=== PATIENT | female | born 1955 | race Caucasian/White ===

== ENCOUNTER 2019-03-31 15:23 | Outpatient (RCR) | payer SELFPAY ==
--- NOTE | 2019-04-05 12:35 | HP.PTEVAL ---
Patient's Visit Information KUMAR HOFF is a 63 year old F referred to Physical Therapy by Sotrm Landaverde DO with a diagnosis of Gait Abnormality. Date of Evaluation: 03/31/19 Physical Therapist: Aminah Boucher DPT - Visit Plan Plan: Patient to do I HEP and use heel lift in left shoe. Call if questions or come back as needed- Kitchen Sink Exercises Given - Subjective Findings: Patient attends PT today with her . She reports that she fell and broke her left hip 4 years ago. She had PT at that time- she does not have pain very often but she and her are concerned becuase she does not walk straight. She does not have loss of balance or falls but wants to walk better. She does get stiff after sitting for long periods of time and has to use her arms to rise from a chair. No limitations in ADL's. Does not consistently go to a chiropractor but has been to one before. - Objective Posture: good in sitting and fair in standing. Observation: right hip is elevated compared to left. Palpation: not tender. Gait: Trendelenburg- good bridget. ROM: WFL in all planes. Palpation: not tender. Strength: Ankle: 5/5, Knee: 5/5, Hip: 4+/5 Core: fair. SLS: mild hip drop but can SLS for 15 sec without LOB. Special Test: LLD: left is 1/2 shorter than the right with pelvis neutral, Pelvic Alignment: WNL - Goals Goal 1:: Patient will be I with HEP - Rehabilitation Potential Physical Therapy Diagnosis: Patient presents with a significant leg length discrepancy leading to muscle imbalance and abnormal gait pattern Rehabilitation Potential: Fair - Anticipated Interventions Thank you for the opportunity to evaluate your patient. For Medicare and Medicare HMO plans, please review the plan of care and approve it. It will need to be FAXED BACK to us at [phone] for Medicare purposes. For Medicare only, by signing this I certify the plan of care. Please let me know if there are questions or concerns regarding this plan of care. Physician Signature: Date:
--- NOTE | 2019-06-08 14:23 | HP.PT.NRP ---
HP - Discharge Summary (1) - Patient Information KUMAR HOFF was seen in my office for initial evaluation on 03/31/19. The following Plan of Care was established for this patient: This patient was last seen in our office . Pertinent comments regarding their Physical therapy will appear below: At this point I will be discontinuing this patient from physical therapy. I would be happy to see this patient again in the future if found appropriate by the physician. Thank you! LAUREN OleaT
== END 2019-03-31 19:00 | disposition home or self-care (01) ==
LOC: PT 15:23
PROVIDERS: Family Provider Family Medicine; PCP Family Medicine; Referring Provider Family Medicine; Visit Provider Family Medicine
DX: S72.002D Fracture of unspecified part of neck of left femur, subsequent encounter for closed fracture with routine healing (principal); M25.552 Pain in left hip
CPT/HCPCS: 97161

== ENCOUNTER → 2021-07-04 15:42 | Outpatient (CLI) | payer SELFPAY, OTHER ==
--- NOTE | 2021-07-04 15:56 | RAD_ITS ---
STUDY: X-RAY - LUMBAR SPINE REASON FOR EXAM: Female, 65 years old. DIFFICULTY WALKING TECHNIQUE: 5 radiographic view(s) of the lumbar spine were obtained. COMPARISON: None FINDINGS: Normal lumbar lordosis. There is no substantial scoliosis. Minimal L3-4 anterolisthesis. Grade 1 L4-5 anterolisthesis. There is multilevel endplate spondylosis of the lumbar vertebrae. There is multi-level degenerative disc disease with multi-level disc space narrowing. There is no demonstrated spondylolysis of the pars interarticulares. The soft tissue structures are unremarkable. RAD/L/S Spine Min 4 Views IMPRESSION: Degenerative changes of the spine, as detailed above. Electronically Signed: Shane Coleman MD at 7:41 EDT Tel , Service support ,
--- NOTE | 2021-07-04 15:57 | RAD_ITS ---
STUDY: X-RAY - PELVIS AND BILATERAL HIPS REASON FOR EXAM: Female, 65 years old. Difficulty walking. TECHNIQUE: AP view of the pelvis.? 2 views of the right hip, and 2 views of the left hip were obtained. COMPARISON: 07/26/2015. FINDINGS: There is a non-specific bowel gas pattern. Normal visualized soft tissue structures. Osteopenia. Moderate arthrosis of the sacroiliac joints, right greater than left. Mild arthrosis at the symphysis pubis. Mild arthrosis of the right hip. Three Stevens pins traversing the left femoral neck with slight impaction at the previously described fracture site. RAD/Hips B/L min 2 views w/ Pelvis IMPRESSION: Osteopenia with osteoarthritic changes. ORIF of left femoral neck without complicating features. No acute abnormality Electronically Signed: Morris Lin MD at 10:16 EDT , Service support ,
== END ==
PROVIDERS: PCP Family Medicine; Referring Provider Family Medicine; Visit Provider Family Medicine
DX: M25.552 Pain in left hip (principal)
CPT/HCPCS: 72110; 73521

== ENCOUNTER 2022-06-20 18:56 | Emergency (ER) | payer OTHER, SELFPAY ==
[2022-06-20 18:57] VITALS: BP 146/69; PULSE 81; RESP 16; TEMP 36.6; O2SAT 95; BMI 29.2
[2022-06-20 20:33] LABS: Absolute Lymphocyte Count 0.97 X10^3/uL (0.83-4.51); Absolute Neutrophil Count 11.1 X10^3/uL (2.0-7.7); Basophil# 0.08 X10^3/uL; Basophil% 0.6 % (0-1); Hemoglobin 14.2 g/dL (12.0-15.0); Lymphocyte # 0.97 X10^3/ul (0.83-4.51); Lymphocyte % 7.3 % (19-41); Mean Corp Hgb Conc 33.8 g/dL (32-36); Mean Corpuscular Volume 88.6 fL (81-99); Mean Platelet Vol. 8.9 fl (6.2-12.0); Monocyte# 1.08 X10^3/uL; Monocyte% 8.1 % (0-10); NRBC Flagged by Analyzer 0 % (0-5); Neutrophil # 11.07 X10^3/uL (2.7-7.7); Neutrophil % 83.5 % (47-70); Platelet Count 297 K/mm3 (150-450); RBC Distribution Width CV 12.6 % (11.6-14.6); Red Blood Count 4.74 M/mm3 (4.2-5.4); White Blood Count 13.3 K/mm3 (4.4-11.0)
[2022-06-20 20:55] LABS: Anion Gap 10 (5-15); BUN 18 mg/dL (7-18); BUN/Creat Ratio 27.4 RATIO (10-20); Chloride 94 mmol/L (98-107); Creatinine, Serum 0.66 mg/dL (0.55-1.02); EST Glomerular Filtration Rate 95 mL/min (>60); Est Glom Filt Rate - Afr Amer 115 mL/min (>60); Estimated Creatinine Clearance 39.21 ml/min; Glucose 267 mg/dL (74-106); Potassium 4.2 mmol/L (3.5-5.1); Sodium Level 130 mmol/L (136-145)
[2022-06-20] MEDS: 0.9% Normal Saline 1,000 ML 999 ML IV (21:18)
--- NOTE | 2022-06-20 21:18 | CT_ITS ---
STUDY: CT ABDOMEN AND PELVIS WITHOUT CONTRAST REASON FOR EXAM: Female, 66 years old. Diarrhea RADIATION DOSAGE (If Supplied By Facility): CTDIvol = ( 9.21 ) mGy, DLP = ( 414.22 ) mGycm TECHNIQUE: Transaxial images were obtained from the dome of the diaphragm to the symphysis pubis without oral contrast, and without intravenous contrast. Sagittal and coronal images were reconstructed. Individualized dose optimization techniques were used for this CT. COMPARISON: None. FINDINGS: The visualized lung bases are unremarkable. The visualized portions of the heart are within normal limits. The liver is enlarged but homogeneous attenuation without mass or bile duct dilatation . Gallbladder has been removed surgically.. Normal spleen. Normal pancreas. Normal bilateral adrenal glands. Bilateral renal pelvocaliectasis and hydroureter more pronounced on the left to the level of the markedly distended bladder without evidence for ureteral calculus possibly due to reflux or bladder outlet obstruction. Normal visualized stomach. There is diffuse nonspecific ileus. No evidence for small bowel obstruction.. No evidence for acute appendicitis.. Mild atherosclerotic change of the aorta without evidence for aneurysm. Normal inferior vena cava. Normal retroperitoneum. Uterus not visualized status post hysterectomy Normal abdominal wall. Lumbar spine demonstrates mild spondylosis. Postsurgical changes of the left hip. CT/Abdomen/Pelvis without Cont IMPRESSION: Findings consistent with nonspecific ileus.. Mild bilateral pelvocaliectasis and hydroureter slightly worse on the left to the level of markedly distended bladder possibly due to reflux or bladder outlet obstruction. Clinical correlation recommended Electronically Signed: Imer Trevino MD at 22:18 EDT ,
--- NOTE | 2022-06-20 21:18 | EX.ED.DYSGE1 ---
HPI History of Present Illness Chief Complaint: General Illness Narrative Narrative: 66-year-old Yazidi female presents with her because of nausea, diarrhea, weakness, headache, and abdominal pain. She states that she is not been doing well all summer. She has a broken hip and now has to walk with a cane. They stated that on Friday, 2 days ago, she did not feel well and had to lay down because she was very tired and generally weak. She states she had a headache, and today she developed diarrhea. She had 1 or 2 episodes of loose stool without any blood. She had diffuse abdominal pain related to it. She also had 3-4 episodes of vomiting over the last 24 hours without any blood in her emesis. She denies any dysuria or hematuria. Past medical history does include psoriasis, and the surgery for the broken hip. She is also diabetic. She states her headache has improved but she feels generally weak still. PFSH PFSH Home Medications Fish Oil 2 capsule PO TID 12/24/14 [History Last Taken Unknown] glimepiride 4 mg tablet 4 mg PO DAILY@0800 ##30 12/27/14 [Rx Last Taken Unknown] hydrocodone-acetaminophen 5-325mg 5mg-325mg 1 tab PO Q6H PRN PRN Pain ##30 12/27/14 [Rx Last Taken Unknown] rivaroxaban 10 mg tablet (Xarelto) 10 mg PO DAILY@0600 ##14 12/27/14 [Rx Last Taken Unknown] Allergy/AdvReac Type Severity Reaction Status Date / Time No Known Allergies Allergy Verified 06/20/22 18:59 Social History Smoking Status: Never smoker ROS ROS ED ROS Narrative Constitutional: No fever, no chills. HEENT: No sore throat. No neck pain. No loss of vision. No rhinorrhea. Cardiovascular: No chest pain. No palpitations. No pedal edema. Respiratory: No cough, no shortness of breath. Abdominal: Diffuse abdominal pain. Positive nausea. 3-4 episodes of nonbloody vomiting. Positive diarrhea. Genitourinary: No dysuria. No hematuria. Musculoskeletal: No myalgias. No arthralgias. Neurologic: No headaches. No dizziness. No lightheadedness. Generalized weakness. Skin: No rash. No change in color. Chronic psoriasis. Psychiatric: No depression. No anxiety. EXAM Physical Exam Narrative Exam Narrative: Afebrile. Vital signs noted. HEENT: Normocephalic. Atraumatic. PERRL, EOMI. Neck soft and supple. No point tenderness or step off. Cardiovascular: Regular rate and rhythm. No murmurs, rubs, or gallops appreciated. Respiratory: No tachypnea. Lungs clear to auscultation bilaterally. Gastrointestinal: Abdomen soft, nontender, with normoactive bowel sounds. No rebound or guarding. Neurological: Awake. Alert. Nonfocal, nonlateralizing. Skin: Positive diffuse psoriatic rash. Normal color. No pallor. Musculoskeletal: No pedal edema. Full range of motion extremities. Const Vital Signs: 06/20/22 18:57 06/20/22 20:23 Temperature 97.8 F Temperature Source Temporal Pulse Rate 81 Respiratory Rate 16 Respiratory Effort Normal Respiratory Pattern Normal Blood Pressure 146/69 H Blood Pressure Mean 94 Pulse Ox 95 Oxygen Delivery Method Room Air MDM MDM MDM Narrative Medical decision making narrative: Baseline laboratories were drawn. She has slightly elevated white count of 13.3. Hemoglobin normal at 14.2. Platelet count normal at 297. Her sodium is low at 130 but this has been chronically low in the past. Chloride 94. Glucose appropriately elevated to 67 with a normal anion gap of 10. Urinalysis is currently pending. She was bolused normal saline 1 L intravenously. Additionally, I will obtain CT imaging of her abdomen to look for causes of her diarrhea which may have caused her dehydration. However she has a normal potassium of 4.2. Her urinalysis shows 5-10 WBCs but negative nitrites. She is not having dysuria where I think antibiotics are indicated. CT of the abdomen pelvis does show what appears to be an nonspecific ileus with distention of the bladder. Concern was for bladder outlet obstruction, but the patient was able to urinate and give a sample. Additionally, she is feeling improved and she has not vomiting. She has bowel sounds on examination. She feels improved and would like to be discharged. She will follow-up with her primary care physician. I recommend that they follow-up with her orthopedic surgeon regarding her chronic left hip pain from where she had surgery. Patient and are agreeable to the plan. Disposition is discharged in stable condition. Return instructions were reviewed. Lab Data Attestation: I reviewed the patient's lab results. Labs: Laboratory Results - last 24 hr 06/20/22 06/20/22 06/20/22 20:25 20:25 21:44 WBC 13.3 H RBC 4.74 Hgb 14.2 Hct 42.0 MCV 88.6 MCH 30.0 MCHC 33.8 RDW Std Deviation 41.0 RDW Coeff of Caleb 12.6 Plt Count 297 MPV 8.9 Immature Gran % (Auto) 0.500 Neut % (Auto) 83.5 H Lymph % (Auto) 7.3 L [place] % (Auto) 8.1 Eos % (Auto) 0.0 Baso % (Auto) 0.6 Absolute Neuts (auto) 11.1 H Absolute Lymphs (auto) 0.97 Nucleated RBC % 0 Sodium 130 L Potassium 4.2 Chloride 94 L Carbon Dioxide 26.0 Anion Gap 10 BUN 18 Creatinine 0.66 Estim Creat Clear Calc 39.21 Est GFR (MDRD) Af Amer 115 Est GFR (MDRD) Non-Af 95 BUN/Creatinine Ratio 27.4 H Glucose 267 H Calcium 9.0 Urine Color Yellow Urine Clarity Clear Urine pH 6.0 Ur Specific [place] 1.015 Urine Protein 30 H Urine Glucose (UA) Normal Urine Ketones 50 H Urine Occult Blood Negative Urine Nitrite Negative Urine Bilirubin Negative Urine Urobilinogen Normal Ur Leukocyte Esterase 500 H Urine RBC 0 SEEN Urine WBC 5-10 SEEN Ur Squamous Epith Cells 0-5 SEEN Urine Bacteria 1+ Urine Mucus 0 SEEN Radiography Diagnostic Testing: Clinical Impression(s) from Imaging Studies Abdomen/Pelvis CT 06/20/22 21:18 IMPRESSION: Findings consistent with nonspecific ileus.. Mild bilateral pelvocaliectasis and hydroureter slightly worse on the left to the level of markedly distended bladder possibly due to reflux or bladder outlet obstruction. Clinical correlation recommended Electronically Signed: Imer Trevino MD at 22:18 EDT , Discharge Plan Triage Chief Complaint: General Illness ED Provider: Elie Mandel Dx/Rx/DC Orders Clinical Impression: Dehydration, Hyponatremia, Ileus, unspecified Prescriptions: No Action Fish Oil 2 capsule PO TID Label Comments: SUPPLEMENT glimepiride 4 MG tablet 4 mg PO DAILY@0800 Qty: 30 0RF Label Comments: blood sugar rivaroxaban [Xarelto] 10 MG tablet 10 mg PO DAILY@0600 Qty: 14 0RF Label Comments: help prevent blood clot hydrocodone-acetaminophen 1 TABLET tablet 1 tab PO Q6H PRN PRN (Reason: Pain) Qty: 30 0RF Label Comments: pain Primary Care Provider: Storm Landaverde Referrals: Storm Landaverde, [Primary Care Provider] - 1-2 Days if not improving Disposition Disposition: Home, Self Care
[2022-06-20 21:52] LABS: Mucous, Urine 0 SEEN /hpf (<or=2+); Red Blood Cells-Urine 0 SEEN /hpf (0-5)
[2022-06-20 22:03] LABS: Color, Urine Yellow (Yellow); Glucose, Dipstick Normal (Normal); Ketone-Dipstick 50 mg/dl (Negative); Leukocyte Esterase-Dipstick 500 /ul (Negative); Nitrite-Dipstick Negative (Negative); Occult Blood-Urine Negative /ul (Negative); Protein-Dipstick 30 mg/dl (Negative); Specific Gravity, Urine 1.015 (1.002-1.030); Urine Bilirubin Dipstick Negative (Negative); Urine Clarity Clear (Clear); Urine Urobilinogen Normal (Normal)
[2022-06-20 22:14] LABS: Squamous Epithelial Cells - UA 0-5 SEEN /hpf (5-10); White Blood Cells 5-10 SEEN /hpf (0-5)
[2022-06-20 22:15] LABS: Bacteria 1+ /hpf (None Seen)
[2022-06-20 23:14] VITALS: BP 138/78; PULSE 81; RESP 16; O2SAT 97
== END 2022-06-20 23:17 | disposition home or self-care (01) ==
PROVIDERS: Emergency Provider Emergency Medicine; PCP Family Medicine; Visit Provider Emergency Medicine
DX: E86.0 Dehydration (principal); K56.7 Ileus, unspecified; E87.1 Hypo-osmolality and hyponatremia
CPT/HCPCS: 74176; 80048; 81001; 85025; 99283; J7030; A4216